=== PATIENT | male | born 1945 | race Caucasian/White ===

== ENCOUNTER → 2024-03-01 | Outpatient (CLI) | payer MEDICARE, BC | LOC: M SOG 07:21 | PROVIDERS: ATTEND Physician Assistant | DX: S62.667B Nondisplaced fracture of distal phalanx of left little finger, initial encounter for open fracture (principal); M77.8 Other enthesopathies, not elsewhere classified; X58.XXXA Exposure to other specified factors, initial encounter; Y92.9 Unspecified place or not applicable; Y93.9 Activity, unspecified; Y99.9 Unspecified external cause status ==

== ENCOUNTER 2024-03-29 16:33 | Observation (INO) | payer MEDICARE, BC ==
[~2024-03-29] VITALS: Ht 177.8 cm; Wt 82.8 kg
[2024-03-29 19:15] VITALS: BP 124/90; TEMP 98.4; O2SAT 97
[2024-03-29] MEDS ORDERED: FERR32TA PO (20:06)
[2024-03-29] MEDS ORDERED: FLUTISP (20:06)
[2024-03-29] MEDS ORDERED: ASPI-615 PO (20:07)
[2024-03-29] MEDS ORDERED: D 1010004 PO (20:07)
[2024-03-29] MEDS ORDERED: ACET-683 PO (20:07)
[2024-03-29] MEDS ORDERED: RA B1TAB2 PO (20:07)
[2024-03-29] MEDS ORDERED: TRAM50TA2 PO (20:07)
[2024-03-29] MEDS ORDERED: HOME MED LIST COMPLETE! XX SCH (20:10)
[2024-03-29] MEDS ORDERED: traMADol 50 MG TAB PO PRN (21:00)
[2024-03-29] MEDS ORDERED: ACETAMINOPHEN 325 MG TAB PO PRN (21:00)
[2024-03-29] MEDS: PANTOPRAZOLE 40MG VIAL IV SCH (21:42)
[2024-03-29 21:57] LABS: HEMATOCRIT 38.5 % (42.0-52.0); HEMOGLOBIN 13.5 g/dl (13.5-17.5); MEAN CORPUSCULAR HGB CONC 35.1 g/dl (32.0-36.5); PLATELET COUNT, AUTOMATED 224 10^3/uL (150-450); RED BLOOD COUNT 3.97 10^6/uL (4.30-6.10); WHITE BLOOD COUNT 7.4 10^3/uL (4.0-10.0)
[2024-03-29 22:10] LABS: INR 1.25; PROTHROMBIN TIME 15.3 SECONDS (12.5-14.5)
[2024-03-29 22:16] LABS: ALBUMIN 3.4 G/DL (3.2-5.2); ALKALINE PHOSPHATASE 65 U/L (46-116); ALT/SGPT 17 U/L (7.0-40); AST/SGOT 14 U/L (<34); BILIRUBIN,DIRECT 0.6 MG/DL (<0.4); BILIRUBIN,TOTAL 1.7 MG/DL (0.3-1.2); BLOOD UREA NITROGEN 16 MG/DL (9-23); CALCIUM LEVEL 9.4 MG/DL (8.3-10.6); CARBON DIOXIDE LEVEL 25 MMOL/L (20-31); CHLORIDE LEVEL 109 MMOL/L (98-107); CREATININE FOR GFR 0.68 MG/DL (0.70-1.30); GLOMERULAR FILTRATION RATE > 60.0 (>42); GLUCOSE, FASTING 91 MG/DL (74-106); POTASSIUM SERUM 4.2 MMOL/L (3.5-5.1); SODIUM LEVEL 140 MMOL/L (136-145); TOTAL PROTEIN 6.3 G/DL (5.7-8.2)
[2024-03-29] MEDS ORDERED: FLUTICASONE PROP 0.05% NASAL SPRAY 16 GM (FLONASE) PRN (23:00)
[2024-03-30 00:50] VITALS: BP 138/72; TEMP 98.2; O2SAT 98
[2024-03-30] MEDS ORDERED: METOPROLOL TART 50 MG TAB PO STA (02:21)
[2024-03-30] MEDS ORDERED: PILL CUTTER 1 EACH XX ONE (02:36)
[2024-03-30] MEDS: METOPROLOL TART 12.5 MG PER 1/2 TAB PO STA (02:43)
[2024-03-30 03:51] VITALS: BP 128/84; TEMP 98.2; O2SAT 94
[2024-03-30 05:57] LABS: HEMATOCRIT 38.7 % (42.0-52.0); HEMOGLOBIN 13.5 g/dl (13.5-17.5); MEAN CORPUSCULAR HGB CONC 34.9 g/dl (32.0-36.5); MEAN CORPUSCULAR VOLUME 97.5 fl (80.0-96.0); PLATELET COUNT, AUTOMATED 227 10^3/uL (150-450); RED BLOOD COUNT 3.97 10^6/uL (4.30-6.10); WHITE BLOOD COUNT 6.4 10^3/uL (4.0-10.0)
[2024-03-30 06:23] LABS: BLOOD UREA NITROGEN 15 MG/DL (9-23); CALCIUM LEVEL 9.4 MG/DL (8.3-10.6); CARBON DIOXIDE LEVEL 26 MMOL/L (20-31); CHLORIDE LEVEL 107 MMOL/L (98-107); CREATININE FOR GFR 0.71 MG/DL (0.70-1.30); GLOMERULAR FILTRATION RATE > 60.0 (>42); GLUCOSE, FASTING 90 MG/DL (74-106); POTASSIUM SERUM 4.2 MMOL/L (3.5-5.1); SODIUM LEVEL 140 MMOL/L (136-145)
[2024-03-30 06:26] LABS: MAGNESIUM LEVEL 2.1 MG/DL (1.8-2.4)
[2024-03-30 06:27] LABS: IRON (FE) 82 UG/DL (65-175); PERCENT SATURATION 30.4 % (19.7-50.0); TOTAL IRON BINDING CAPACITY 270 UG/DL (250-425)
[2024-03-30 06:30] LABS: FERRITIN 332.3 NG/ML (10.5-307.3); VITAMIN B12 LEVEL 804 PG/ML (211-911)
[2024-03-30 06:33] LABS: FOLATE > 24.00 NG/ML (>5.4)
[2024-03-30 08:15] VITALS: BP 144/99; TEMP 97.7; O2SAT 97
[2024-03-30 08:17] VITALS: BP 144/99; TEMP 97.7; O2SAT 97
[2024-03-30 09:15] LABS: ERYTHROCYTE SEDIMENTATION RATE 13 mm/hr (0-20)
[2024-03-30] MEDS: ASPIRIN 81MG ENTERIC TABLET PO SCH (09:20)
[2024-03-30 10:09] VITALS: BP 135/82
[2024-03-30] MEDS: METOPROLOL TART 12.5 MG PER 1/2 TAB PO SCH (10:09)
[2024-03-30] MEDS ORDERED: METO37.5 PO (10:57)
[2024-03-30] MEDS ORDERED: METO1TAB87 PO (11:39)
[2024-03-30 11:52] VITALS: BP 140/91; TEMP 97.3; O2SAT 98
[2024-03-30] MEDS ORDERED: METOPROLOL TART 12.5 MG PER 1/2 TAB PO SCH (21:00)
== END 2024-03-30 13:33 | disposition home or self-care (01) ==
LOC: INTOOBSV 19:06 → M MSPAV 19:06
PROVIDERS: ADMIT General Practice; ATTEND Student in an Organized Health Care Education/Training Program
DX: K64.8 Other hemorrhoids (principal); K51.20 Ulcerative (chronic) proctitis without complications; I48.0 Paroxysmal atrial fibrillation; Z85.46 Personal history of malignant neoplasm of prostate; M19.90 Unspecified osteoarthritis, unspecified site; D50.9 Iron deficiency anemia, unspecified; J30.0 Vasomotor rhinitis; Z79.82 Long term (current) use of aspirin; Z79.899 Other long term (current) drug therapy
CPT/HCPCS: 36415; 80048; 80076; 82607; 82728; 82746; 83550; 83735; 84466; 85027; 85610; 85652; 86140; 93005; 96374; 96376; G0378; J2470

== ENCOUNTER → 2024-03-29 | Outpatient (CLI) | payer MEDICARE, BC ==
[~2024-03-29] MED LIST: ACET-683 PO; ASPI-615 PO; D 1010004 PO; FERR32TA PO; FLUTISP; METO1TAB87 PO; METO37.5 PO; RA B1TAB2 PO; TRAM50TA2 PO
== END ==
LOC: M SOG 07:49
PROVIDERS: ATTEND Physician Assistant
DX: S62.667B Nondisplaced fracture of distal phalanx of left little finger, initial encounter for open fracture (principal); Z53.9 Procedure and treatment not carried out, unspecified reason

== ENCOUNTER → 2024-04-05 | Outpatient (CLI) | payer MEDICARE, BC | LOC: M SOG 07:29 | PROVIDERS: ATTEND Physician Assistant | DX: S62.667D Nondisplaced fracture of distal phalanx of left little finger, subsequent encounter for fracture with routine healing (principal) ==

== ENCOUNTER 2024-05-31 07:17 | Day surgery (SDC) | payer MEDICARE, BC ==
[~2024-05-31] VITALS: Ht 177.8 cm; Wt 85.8 kg
[2024-05-31] MEDS ORDERED: GLUCAGON INJ 1MG VIAL As Ordered ONE (08:38)
[2024-05-31] MEDS ORDERED: propofoL 200 MG/20 ML VIAL As Ordered ONE (08:42)
[2024-05-31] MEDS ORDERED: LIDOCAINE 2% 100MG/5ML SDV (FOR ANES.) As Ordered ONE (08:43)
[2024-05-31 08:54] VITALS: TEMP 97.2
[2024-05-31 09:12] VITALS: BP 121/81; O2SAT 97
== END 2024-05-31 09:17 | disposition home or self-care (01) ==
LOC: M OPP 07:17
PROVIDERS: ATTEND Internal Medicine Gastroenterology
DX: D12.2 Benign neoplasm of ascending colon (principal); D12.5 Benign neoplasm of sigmoid colon; K62.7 Radiation proctitis; I10 Essential (primary) hypertension; Z85.46 Personal history of malignant neoplasm of prostate; Z92.3 Personal history of irradiation; Z79.82 Long term (current) use of aspirin; Z79.899 Other long term (current) drug therapy
CPT/HCPCS: 45385; 88305; J1610